=== PATIENT | male | born 1950 | race Caucasian/White ===

== ENCOUNTER → 2021-02-01 | Outpatient (CLI) | payer MEDICARE, OTHER | LOC: ECHO 13:00 | DX: R60.1 Generalized edema (principal) | CPT/HCPCS: ECHO; 93306 ==

== ENCOUNTER 2022-04-11 04:03 | Inpatient (IN) | payer MEDICARE ==
[~2022-04-11] VITALS: Ht 175.3 cm; Wt 146.1 kg
[2022-04-11 04:34] LABS: RED BLOOD COUNT 4.73 M/UL (4.20-5.50); WHITE BLOOD COUNT 7.2 K/UL (4.5-11.0)
[2022-04-11 05:01] LABS: BUN/CREATININE RATIO 17 (0-10)
[2022-04-11] MEDS ORDERED: ZYTIGA250 MG PO (11:48)
[2022-04-11] MEDS ORDERED: HYDROCHLOROTHIA25 MG PO (11:48)
[2022-04-11] MEDS ORDERED: PREDNISONE5 MG PO (11:49)
[2022-04-11] MEDS ORDERED: METOPROLOL SUCC50 MG PO (11:49)
[2022-04-11] MEDS ORDERED: LISINOPRIL40 MG PO (11:50)
[2022-04-11] MEDS ORDERED: SIMVASTATIN20 MG PO (11:51)
[2022-04-11] MEDS ORDERED: OMEPRAZOLE20 MG PO (11:51)
[2022-04-11] MEDS ORDERED: ONDANSETRON HCL8 MG PO (11:52)
[2022-04-11 16:20] LABS: BODY FLUID SOURCE PLEURAL; MONONUCLEAR CELLS 95.1 (75-100); POLYMORPHONUCLEAR % 4.9 (0-25); RBC (AUTOMATED) 24400 (0-100000); WBC (AUTOMATED) 852 (0-500)
[2022-04-11 16:56] LABS: AMYLASE, BODY FLUID 22 U/L
[2022-04-12 02:28] LABS: HEMOGLOBIN 14.2 gm/dl (14.0-17.5); RED BLOOD COUNT 4.46 M/UL (4.20-5.50); WHITE BLOOD COUNT 6.9 K/UL (4.5-11.0)
[2022-04-12 02:36] LABS: BUN/CREATININE RATIO 19 (0-10)
[2022-04-12] MEDS ORDERED: LEVOFLOXACIN500 MG PO (09:52)
== END 2022-04-12 12:12 | disposition home or self-care (01) | DRG 186 ==
LOC: ER1 04:03 → CDU 08:16 → PROG CARE 15:33
PROVIDERS: Physician Assistant; ADMIT Internal Medicine
PROC: 0W993ZZ Drainage of Right Pleural Cavity, Percutaneous Approach (ICD-10-PCS; principal; 2022-04-11)
PROC: BB4BZZZ Ultrasonography of Pleura (ICD-10-PCS; 2022-04-11)
DX: J90 Pleural effusion, not elsewhere classified (principal); J18.9 Pneumonia, unspecified organism; C34.91 Malignant neoplasm of unspecified part of right bronchus or lung; Z68.42 Body mass index [BMI] 45.0-49.9, adult; K21.9 Gastro-esophageal reflux disease without esophagitis; E66.01 Morbid (severe) obesity due to excess calories; E11.9 Type 2 diabetes mellitus without complications; E78.5 Hyperlipidemia, unspecified; I10 Essential (primary) hypertension; Z85.46 Personal history of malignant neoplasm of prostate; Z79.4 Long term (current) use of insulin; Z87.891 Personal history of nicotine dependence; Z82.49 Family history of ischemic heart disease and other diseases of the circulatory system; Z80.9 Family history of malignant neoplasm, unspecified
CPT/HCPCS: ECHO; 36415; 71045; 71046; 80048; 80053; 82150; 82550; 82553; 82803; 82945; 83615; 83735; 83880; 83986; 84157; 84484; 85025; 85610; 85730; 87070; 87081; 87205; 88341; 88342; 89051; 93005; 93306; 94664; 96374; 99285; J0696; J1335; J1650; Q9967

== ENCOUNTER → 2022-04-17 | Outpatient (CLI) | payer MEDICARE ==
[~2022-04-17] MED LIST: HYDROCHLOROTHIA25 MG PO; LEVOFLOXACIN500 MG PO; LISINOPRIL40 MG PO; METOPROLOL SUCC50 MG PO; OMEPRAZOLE20 MG PO; ONDANSETRON HCL8 MG PO; PREDNISONE5 MG PO; SIMVASTATIN20 MG PO; ZYTIGA250 MG PO
== END ==
LOC: EXRD 15:07
DX: R53.83 Other fatigue (principal)
CPT/HCPCS: 71046